=== PATIENT | female | born 1970 | race Caucasian/White ===

== ENCOUNTER 2022-01-29 12:21 | Emergency (ER) | payer SELFPAY ==
[~2022-01-29] VITALS: Ht 165.1 cm; Wt 75.0 kg
[2022-01-29 12:24] VITALS: BP 217/109
[2022-01-29] MEDS ORDERED: IBUP-2029 MT (14:25)
[2022-01-29] MEDS ORDERED: OFLO5DRO4 RIGHT EAR (14:26)
== END 2022-01-29 14:37 | disposition home or self-care (01) ==
LOC: EDBD 12:21 → ER 12:21
DX: H60.591 Other noninfective acute otitis externa, right ear (principal); H72.91 Unspecified perforation of tympanic membrane, right ear; I10 Essential (primary) hypertension
CPT/HCPCS: 99281; 99283